=== PATIENT | female | born 1995 | race Caucasian/White ===

== ENCOUNTER 2025-01-28 17:07 | Emergency (ER) | payer BC ==
[2025-01-28] MEDS: Ondansetron 4 MG Tab.DIS PO ONE (22:16)
== END 2025-01-28 22:17 | disposition home or self-care (01) ==
LOC: MW.ED 17:07
DX: O99.613 Diseases of the digestive system complicating pregnancy, third trimester (principal); K61.1 Rectal abscess; Z3A.34 34 weeks gestation of pregnancy
CPT/HCPCS: 46040; 99283; 99283-25; J2003